=== PATIENT | female | born 1945 | race Caucasian/White ===

== ENCOUNTER → 2021-10-11 10:02 | Outpatient (BNVA) | payer MEDICARE, SELFPAY | PROVIDERS: Family Provider Nurse Practitioner Family; PCP Nurse Practitioner Family; Visit Provider Otolaryngology | DX: M26.623 Arthralgia of bilateral temporomandibular joint (principal); E04.2 Nontoxic multinodular goiter | CPT/HCPCS: 99204 ==

== ENCOUNTER 2021-11-06 07:40 | Outpatient (CLI) | payer MEDICARE, SELFPAY ==
--- NOTE | 2021-11-06 09:30 | US_ITS ---
WS: [id number] ULTRASOUND-GUIDED BILATERAL THYROID NODULE FNA's x 3 HISTORY: Multiple bilateral thyroid nodules on a background of goiter formation. Ultrasound from 10/03/2021 is reviewed. The most suspicious thyroid nodules will be targeted. The most suspicious on the RIGHT involves the i nferior pole towards the isthmus and in the mid gland. The mid gland nodule contains calcifications. This is the most suspicious nodule. In the LEFT thyroid there is a large heterogeneous area in the mi d gland contiguous with the more benign-appearing spongiform nodule. This entire area will be targete d. Procedure, risks, and complications were explained to the patient. Consent has been obtained. The skin is cleansed with ChloraPrep and anesthetized with 1% buffered lidocaine. FNA performed with [address] scan technologist is present to fix slides. RIGHT thyroid nodules are biopsied without difficulty. There is a small amount of bleeding post proce dure. Uncomplicated fine-needle aspiration of the LEFT thyroid nodule. US/US biopsy/FNA thyroid [id number] IMPRESSION: Uncomplicated FNA of bilateral thyroid nodules. The most concerning nodule is i n the mid RIGHT gland containing calcification. Final pathology results pending .
== END 2021-11-06 07:41 | disposition home or self-care (01) ==
LOC: RAD 07:43
PROVIDERS: PCP Nurse Practitioner Family; Visit Provider Otolaryngology
DX: E04.2 Nontoxic multinodular goiter (principal)
CPT/HCPCS: 10005; 10006; 88108

== ENCOUNTER → 2021-11-18 13:41 | Outpatient (BNVA) | payer MEDICARE, SELFPAY | PROVIDERS: PCP Family Medicine; Referring Provider Nurse Practitioner Family; Visit Provider Internal Medicine | DX: E05.90 Thyrotoxicosis, unspecified without thyrotoxic crisis or storm (principal); E04.2 Nontoxic multinodular goiter | CPT/HCPCS: 99204 ==

== ENCOUNTER → 2021-11-20 14:58 | Outpatient (BNVA) | payer MEDICARE, SELFPAY | PROVIDERS: PCP Family Medicine; Visit Provider Otolaryngology | DX: E04.2 Nontoxic multinodular goiter (principal) | CPT/HCPCS: 99212; 99213 ==

== ENCOUNTER → 2024-10-18 10:47 | Outpatient (BNVA) | payer MEDICARE, SELFPAY | PROVIDERS: PCP Family Medicine; Visit Provider Dermatology | DX: L81.4 Other melanin hyperpigmentation (principal); L57.8 Other skin changes due to chronic exposure to nonionizing radiation; L43.8 Other lichen planus; R20.8 Other disturbances of skin sensation; L57.0 Actinic keratosis | CPT/HCPCS: 17110; 99204 ==

== ENCOUNTER → 2024-11-17 10:18 | Outpatient (BNVA) | payer MEDICARE, SELFPAY | PROVIDERS: PCP Family Medicine; Referring Provider Nurse Practitioner Family; Visit Provider Internal Medicine | DX: E04.2 Nontoxic multinodular goiter (principal); E05.90 Thyrotoxicosis, unspecified without thyrotoxic crisis or storm | CPT/HCPCS: 99204 ==

== ENCOUNTER 2024-12-05 11:40 | Outpatient (CLI) | payer MEDICARE, SELFPAY ==
--- NOTE | 2024-12-05 13:15 | USR_ITS ---
PROCEDURE INFORMATION: Exam: US Soft Tissue Head and Neck, Thyroid Exam date and time: 12/05/2024 12:12 PM Age: 79 years old Clinical indication: Condition or disease; Thyroid disorder; Other: Nodule; Additional info: Thyroid nodules, please include tirads TECHNIQUE: Imaging protocol: Real-time ultrasound scan of the neck with image documentation. Exam focused on the thyroid. COMPARISON: 1. US biopsy/FNA thyroid [id number] 11/06/2021 8:59 AM 2. [place] thyroid [id number] 10/03/2021 11:06 AM FINDINGS: Right thyroid lobe: Right lobe measures 3.5 x 3.9 x 6.6 cm. Right lobe is heterogeneous and enlarged secondary to multiple nodules. Nodule 1: Superior, 1.9 x 1.3 x 2.3 cm, previously 1.5 x 1.6 x 2 cm, mixed cystic and solid, hypoechoic, wider than tall, no echogenic foci, TR 3. Nodule 2: Superior, 2.2 x 1.3 x 2.6 cm, previously 2.5 x 1.3 x 2.4 cm, mixed cystic and solid, isoechoic, wider than tall, no echogenic foci, TR 2. Left thyroid lobe: The left lobe measures 3.2 x 3.5 x 7.2 cm. The left lobe is enlarged, and heterogeneous due to multiple nodules. Nodule 3: Inferior, 2.1 x 1.6 x 2.9 cm, previously 2 x 1 x 2.2 cm, mixed cystic and solid, hypoechoic, no echogenic foci, wider than tall, TR 3. Isthmus: The isthmus measures 1.2 cm in thickness. Lymph nodes: A normal right cervical chain lymph node was identified measuring 6 mm in short axis dimension. US/US thyroid [id number] IMPRESSION: Bilateral TR 3 and TR 2 nodules, 2 of which were benign on prior biopsy. Nodule size is essentially unchanged. Utilizing TI-RADS criteria, continued sonographic surveillance is recommended.
== END 2024-12-05 11:41 | disposition home or self-care (01) ==
LOC: RAD 11:46
PROVIDERS: PCP Family Medicine; Visit Provider Internal Medicine
DX: E04.2 Nontoxic multinodular goiter (principal)
CPT/HCPCS: 76536

== ENCOUNTER → 2024-12-26 10:40 | Outpatient (BNVA) | payer MEDICARE, SELFPAY | PROVIDERS: PCP Family Medicine; Visit Provider Dermatology | DX: L20.89 Other atopic dermatitis (principal); L85.3 Xerosis cutis; D48.5 Neoplasm of uncertain behavior of skin | CPT/HCPCS: 11102; 99214 ==